=== PATIENT | female | born 1970 | race Caucasian/White ===

== ENCOUNTER 2024-09-11 14:40 | Outpatient (CLI) | payer BC, SELFPAY | END 2024-09-11 14:41 | disposition home or self-care (01) | LOC: AMB 09-12 09:27 | PROVIDERS: PCP Family Medicine; Visit Provider Student in an Organized Health Care Education/Training Program | DX: R41.82 Altered mental status, unspecified (principal); R47.01 Aphasia; R29.810 Facial weakness | CPT/HCPCS: A0425; A0429 ==

== ENCOUNTER 2024-09-11 15:07 | Emergency (ER) | payer BC, SELFPAY ==
[2024-09-11] VITALS (30 sets, daily range): BP systolic 151–167; BP diastolic 92–111; PULSE 88–108; RESP 16–22; TEMP 36.5; O2SAT 95–100; BMI 32.8
--- NOTE | 2024-09-11 15:10 | CRLHL7_ITS ---
For Patients: As a result of the Cures Act, medical imaging exams and procedure reports are released immediately into your electronic medical record. You may view this report before your referring provider. If you have questions, please contact your health care provider. INDICATION: 2 HOURS AGO DROOLING, GENERAL CLUMSINESS, RT SIDED WEAKNESS COMPARISON: None TECHNIQUE: CT of the head without contrast. FINDINGS: Brain Parenchyma: No acute infarct, acute intracranial hemorrhage, mass effect, or midline shift. Ventricles: No hydrocephalus. Extra-axial Spaces: No abnormal fluid collection. Paranasal sinuses: No significant mucosal thickening. Orbits: Unremarkable Mastoid Sinuses: Unremarkable Cranium: No acute fracture Soft tissues: Unremarkable IMPRESSION: No CT evidence of an acute intracranial process. Please note that all CT scans at this facility use dose modulation, iterative reconstruction, and/or weight-based dosing when appropriate to reduce radiation dose to as low as reasonably achievable. Dictated by Noam Dewey MD @ 09/11/2024 3:21:11 PM (Electronically Signed)
--- OUTSIDE RECORDS SUMMARY | 2024-09-11 15:10 | XMS_ITS | Clinical Summary ---
Author Organization [facility] Address [address] [place] [address] Care Team Providers Care Poleyard Supervisor Name Role Phone Elsewhere, Pcp Primary Care Provider Unavailabl e Source Comments Patient records contain information from all sites at [facility]. For routine questions regarding patient records, call [phone] during business hours, M-F 8:00 AM - 5:00 PM Central Time. Record requests for emergency care only can be directed to [phone] at any time.[facility] Allergies Active Allergy Reactions Criticality Noted Date Comments Amoxicillin Edema (Reselect Reaction) 2 Medications * This document contains information received from the source organization and may not represent a complete record from that organization. albuterol 90 mcg/actuation inhaler Inhale every 6 (six) hours as needed for wheezing. Active ascorbic acid, vitamin C, (Vitamin C) 1,000 mg tablet Take 1,000 mg by mouth daily. Active zinc acetate 50 mg (zinc) capsule Take by mouth daily. Active phentermine (ADIPEX-P) 37.5 mg tablet Take 37.5 mg by mouth daily. 07/19/2023 Active UNABLE TO FIND daily. Amberen 08/18/2023 Active atorvastatin (LIPITOR) 80 mg tablet Take 80 mg by mouth daily. 05/02/2023 Active dynjqkwl-zel-dn on-FA-vit K-lut 8 mg iron-400 mcg-50 mcg tablet Take by mouth daily. Active topiramate (TOPAMAX) 25 mg tablet Take 25 mg by mouth daily. 07/19/2023 Active sucralfate (CARAFATE) 1 gram tablet Take by mouth. 07/19/2023 Active pantoprazole (PROTONIX) 40 mg EC tablet Take 40 mg by mouth daily. 08/18/2023 Active cholecalciferol (Vitamin D3) 50 mcg (2,000 Unit) capsule Take 50 mcg by mouth daily. 08/18/2023 Active UNABLE TO FIND daily. Med Name: Calcium 1200 + Vitamin D 20mcg Active Active Problems No known active problems Social History Tobacco Use Types Packs/Day Years Used Date Smoking Tobacco: Former Cigarettes Smokeless Tobacco: Never Tobacco Cessation:Counseling Given: Not Answered Alcohol Use Standard Drinks/Week Comments Yes 0 (1 standard drink = 0.6 oz pur e alcohol) a couple drinks per day Dental Answer Date Recorded Dental: Regular Dentist Unknown 03/15/20 21 Comments Unknown Sex and Gender Information Value Date Recorded Sex Assigned at Female 06/07/2021 8:18 AM DOCKWORKER Legal Sex Female 7:04 AM DOCKWORKER Gender Identity Female 06/07/2021 8:18 AM DOCKWORKER Sexual Orientation Straight 06/07/2021 8: 18 AM DOCKWORKER Last Filed Vital Signs Vital Sign Reading Time Taken Comments Blood Pressure 128/69 08/30/2023 11:42 AM CDT Pulse 76 08/30/2023 11:42 AM CDT Temperature 36.5 C (97.7 F) 08/30/2023 11:25 AM CDT Respiratory Rate 16 08/30/2023 11:4 2 AM CDT Oxygen Saturation 98% 08/30/2023 11: 42 AM CDT Inhaled Oxygen Concentration - - Weight 93.4 kg (205 lb 12.8 oz) 08/30/2023 9:30 AM CDT Height 160 cm (5' 3) 08/30/2023 9:30 AM CDT Body Mass Index 36.46 08/30/2023 9:30 AM CDT Plan of Treatment Health Maintenance Due Date Last Done Comments CT Colonography 1972 Cervical/Vaginal Cancer Screening 1972 Cologuard 1972 FIT 1972 Fasting Glucose for Diabetes Screening 1972 HIV Screening 1972 Hepatitis C Screening 1972 Lipid (Cholesterol) Screening 1972 Pneumococcal vaccine (50+ years) (1 of 1 - PCV) 2022 Zoster Vaccines (1 of 2) 2022 Mammogram 02/21/2023 02/21/2022 Hepatitis B Vaccines (2 of 2 - CpG (Heplisav) 2-dose series) 09/14/2023 08/17/2023 COVID-19 Vaccine (4 - 2023-2 5 season) 2023 02/03/2021, 07/27/2020, 07/06/2020 Influenza Vaccine (#1) 2024 Depression Screening (Annual PHQ-2) 04/09/2024 DTaP,Tdap,and Td Vaccines (2 - Td or Tdap) 12/31/2031 12/30/2021 Colonoscopy 03/07/2032 03/07/2022 Colorectal Cancer Screening 03/07/2032 IPV Vaccines Aged Out No longer eligi ble based on patient's age to complete this topic Medical Devices Implanted Type Area [employer]ating [employer] Operator Device Identifier Shelf Expiration Date Model / Serial / Lot Hardware E.G. Pins/Screws/Ro ds Hardware e.g. pins/screws/ rods Right: Leg Procedures Procedure Name Priority Date/Time Associated Diagnosis Comments COLONOSCOPY 03/07/2022 10:10 AM DOCKWORKER BI BREAST SCREENING BILATERAL WITH TOMOSYNTHESIS RAD - Routine (most inpatients and all outpatients) 02/21/2022 2:32 PM DOCKWORKER Routine Screening Breast Exam from Last 3 Months or Most Recently Relevant to Health Maintenance Results * COLONOSCOPY (03/07/2022 10:10 AM DOCKWORKER) Narrative Procedure Note Vanessa Peña M.D. - 03/07/2022 10:[address] [facility] GI Patient Name: Emely Garg Procedure Date: 03/07/2022 10:10 AM Date of : 1970 Age: 51 Gender: Female Procedure: Colonoscopy Providers: Vanessa Peña MD, [facility] Generic gi case scheduling Provider (Ordering Provider) Referring Provider: [facility] Generic gi case scheduling Provider Pre-op Diagnoses: Screening in patient at increased risk:Colorectal cancer in father 60 or older Post-op Diagnoses: - One 1 mm polyp in the sigmoid colon, removed with a jumbo cold forceps. Resected and retrieved. Recommendation: - Await pathology results. - Anticipate follow up colonoscopy in 5-10 years based on polyp pathology. Follow up recommendations for patients with polypsidentified during colonoscopy are impacted by several factors including polyp characteristics (size, number and histology), adequacy of colonic preparation and pertinent family history. For [facility] providers, detailed recommendations are available as an AskMayoExpert CareProcess Model: <<[email or web address]>. The above is an interim recommendation assuming adenomatous pathology, referring provider should refer to [facility] to finalize repeat recommendations. Findings: The perianal and digital rectal examinations were normal. A 1 mm polyp was found in the sigmoid colon. The polyp wassemi-sessile. The polyp was removed with a jumbo cold forceps. Resection andretrieval were complete. No additional abnormalities were found on retroflexion. Of note, the patient had a chronic and significant cough that severely limited insufflation and visualization. Small polyps could have beenmissed. Medicines: Propofol per Anesthesia Estimated Blood Loss: Estimated blood loss was minimal. Complications: No immediate complications. Estimated blood loss: Minimal. Procedure Details: The patient was seen, evaluated, and history reviewed. Airway and heart and lung exams were performed and were satisfactory for plannedsedation care. The risks, benefits and alternatives for the procedure and sedation were discussed andinformed consent was obtained. A procedural pause was conducted in the presence of assisting personnelto verify the correct patient identity and procedureto be performed. Throughout the procedure, the patient's blood pressure, pulse, and oxygen saturations were monitored continuously. The Colonoscope was introduced under directvision through the anus and advanced to the cecum, identified by appendiceal orifice and ileocecal valve. The colonoscopy was performed with ease.The patient tolerated the procedure. The quality ofthe bowel preparation was evaluated using the BBPS ([place] Bowel Preparation Scale) with scores of: Right Colon = 3, Transverse Colon = 3 and LeftColon = 3 (entire mucosa seen well with no residual staining, small fragments of stool or opaque liquid). The total BBPS score equals 9. Scope insertion time was 5 minutes. Scope withdrawaltime was 13 minutes. Sedation: Anesthesia was administered by an anesthesia professional. Thefollowing parameters were monitored: oxygen saturation, heart rate, blood pressure, respiratory rate, EKG, adequacy of pulmonary ventilation,and response to care. Vanessa Peña MD 03/07/2022 10:22:34 AM Number of Addenda: 0 Note Initiated On: 03/07/2022 10:10 AM ADDENDUM: Pathology reviewed. Based on the result, and considering her familyhistory (out from primary relatives, >60 years of age), could considerrepeat colonoscopy for screening in 7-10 years. FINAL DIAGNOSIS Colon, sigmoid polyp biopsy: Hyperplastic polyp. [facility] Generic Gi Case Schedul ing Provider GI PROCEDURE ORDERABLES Edited Result - Final * (ABNORMAL) BI Breast Screening Bilateral with Tomosynthesis (02/21/2022 2:32 PM DOCKWORKER) Anatomical Region Laterality Modality Breast, Breast Imaging RST L OS, Breast Imaging ARZ LOS, Breast Imaging FLA LOS Bilateral Mammography 02/21/2022 2:51 PM DOCKWORKER Impressions 02/21/2022 2:53 PM DOCKWORKER Incomplete. Need additional imaging evaluation. RECOMMENDATION: Additional Imaging to include diagnostic spot CC mammograms and tomograms, and possible ultrasound to follow if deemed necessary ASSESSMENT: BI-RADS: 0 - Incomplete: Needs Additional Imaging Evaluation. Narrative 02/21/2022 2:53 PM DOCKWORKER EXAM: BI BREAST SCREENING BILATERAL WITH TOMOSYNTHESIS Current study was evaluated with a Computer Aided Detection (CAD) system. INDICATION: Screening mammogram. COMPARISON: Prior exam(s) were available and reviewed for comparison. DENSITY: b. There are scattered areas of fibroglandular density. FINDINGS: Left breast: No mammographic or tomographic evidence for malignancy. Right breast: Questionable focal asymmetry seen only in the right breast CC projection, best observed on frame 61/92, again the finding is not identified on the right MLO projection or tomograms. Procedure Note Abbe Cueva M.D. - 02/21/2022 EXAM: BI BREAST SCREENING BILATERAL WITH TOMOSYNTHESIS Current study was evaluated with a Computer Aided Detection (CAD) system. INDICATION: Screening mammogram. COMPARISON: Prior exam(s) were available and reviewed for comparison. DENSITY: b. There are scattered areas of fibroglandular density. FINDINGS: Left breast: No mammographic or tomographic evidence formalignancy. Right breast: Questionable focal asymmetry seen only in the right breastCC projection, best observed on frame 61/92, again the finding is not identified on the rightMLO projection or tomograms. IMPRESSION: Incomplete. Need additional imaging evaluation. RECOMMENDATION: Additional Imaging to include diagnostic spot CCmammograms and tomograms, and possible ultrasound to follow if deemed necessary ASSESSMENT: BI-RADS: 0 - Incomplete: Needs Additional ImagingEvaluation. Sonal Henley M.D. IMG BI PROCEDURES Final Result from Last 3 Months or Most Recently Relevant to Health Maintenance Insurance [facility] Advance Directives For more information, please contact: [phone] * Full Code (Latest Code Status on File) Date Activated Date Inactivated Comments 08/30/2023 9:03 AM 08/31/2023 6:13 AM Question Answer Comments Full Code: Not Discussed Due to: Patient not available * Full Code Date Activated Date Inactivated Comments 03/07/2022 10:37 AM 03/07/2022 12:40 PM Question Answer Comments Full Code: Not Discussed Due to: Patient not available * Full Code Date Activated Date Inactivated Comments 03/07/2022 8:46 AM 03/07/2022 10:37 AM Question Answer Comments Full Code: Not Discussed Due to: Patient not available Care Teams Poleyard Supervisor Relationship Specialty Start Date End Date Elsewhere, Pcp PCP - General Internal Medicine 03/07/22
--- NOTE | 2024-09-11 15:16 | CRLHL7_ITS ---
For Patients: As a result of the Century Cures Act, medical imaging exams and procedure reports are released immediately into your electronic medical record. You may view this report before your referring provider. If you have questions, please contact your health care provider. CLINICAL HISTORY: Right-sided facial droop and clumsiness. TECHNIQUE: Standard helical CT image acquisition through the head following the administration of intravenous contrast was performed. 3D and MIP reconstructions were performed at a separate workstation and permanently archived. COMPARISON: None available. FINDINGS: No intracranial proximal large vessel occlusion or flow-limiting luminal stenosis. No evidence of cerebral aneurysm. No findings to suggest an arterial-venous shunting lesion. The major dural venous sinuses and deep venous system are patent. IMPRESSION: No intracranial proximal large vessel occlusion, flow-limiting luminal stenosis, or cerebral aneurysm. Please note that all CT scans at this facility use dose modulation, iterative reconstruction, and/or weight-based dosing when appropriate to reduce radiation dose to as low as reasonably achievable. Dictated by Jarad Valverde MD @ 09/12/2024 9:10:59 AM (Electronically Signed)
--- NOTE | 2024-09-11 15:16 | CRLHL7_ITS ---
For Patients: As a result of the Century Cures Act, medical imaging exams and procedure reports are released immediately into your electronic medical record. You may view this report before your referring provider. If you have questions, please contact your health care provider. CLINICAL HISTORY: Right-sided weakness and clumsiness. TECHNIQUE: Standard helical CT image acquisition through the neck was performed after intravenous contrast bolus enhancement. 3D and MIP reconstructions were performed at a separate workstation and permanently archived. COMPARISON: None available. FINDINGS: The origins of the great vessels from the aortic arch are patent. The common carotid arteries are patent. No significant luminal stenoses of the proximal ICAs by NASCET criteria. The more distal cervical segments of the ICAs are patent. The origins and cervical segments of the vertebral arteries are patent. IMPRESSION: Patent cervical arterial vasculature without hemodynamically significant luminal stenosis. Please note that all CT scans at this facility use dose modulation, iterative reconstruction, and/or weight-based dosing when appropriate to reduce radiation dose to as low as reasonably achievable. Dictated by Jarad Valverde MD @ 09/12/2024 9:07:53 AM (Electronically Signed)
--- NOTE | 2024-09-11 15:17 | ED.GENADULT ---
HPI - General Adult General Chief complaint: Neuro Symptoms/Altered Deficit Stated complaint: stroke Time Seen by Provider: 09/11/24 15:10 History of Present Illness HPI narrative: 54-year-old female brought to the ER today by EMS from her job at [employer] with concern for acute stroke. History from paramedics is that symptoms began at roughly 1:20 p.m., about 90 minutes prior to arrival. She works at [employer] and started to feel something was wrong with her face so she went to talk to her sister and 120 and her sister noted that she seemed to have a right facial droop and a little bit of drooling from the right side of her mouth. History of the patient is more difficult to get because of her dysarthria and difficulty speaking. 1 she is able to cooperate with exam and does have right facial droop, slurred speech, right arm and right leg weakness. The no headache. No chest pain. No history of heart or vascular disease. No history of stroke. She is not anticoagulated. She is on a medicine for cholesterol and a medicine for weight loss. History from the patient's sister is obtained. Sister was with her at work today. They both work in the same facility. The patient's sister says that the patient come to visit her at her desk at about 115 or 130 today. Definitely just before the sisters 130 meaning. While they were talking she was initially definitely normal. And then while they were talking the patient had an episode where she seemed to climbs only moved her right arm and Dr. Velarde over. The patient bent over to clean up her mass and then when she stood up she seemed to be having a little bit of a drool droopiness on her right corner of her mouth. Symptoms were subtle at 1st and so they did not quite recognize what was going on. The patient went back and continued her job. Later her coworkers then called the ambulance for her because they noticed progressive weakness and trouble moving her right arm and right leg. She apparently had an episode where she almost fell over because right leg weakness. Sister and note that she has been on a medication prescribed by her PCP for about 6-12 months to for weight loss. They think it might start with a P (possibly phentermine). She has lost about 50 lb. Related Data Home Medications ?Medication ?Instructions ?Recorded ?Confirmed atorvastatin 80 mg tablet 80 mg PO DAILY 09/11/24 09/11/24 famotidine 40 mg tablet 40 mg PO DAILY 09/11/24 09/11/24 pantoprazole 40 mg tablet,delayed 40 mg PO BID 09/11/24 09/11/24 release phentermine 37.5 mg tablet 37.5 mg PO DAILY 09/11/24 09/11/24 sucralfate 1 gram tablet 1 g PO QID 09/11/24 09/11/24 topiramate 25 mg tablet 25 mg PO DAILY 09/11/24 09/11/24 Allergies Allergy/AdvReac Type Severity Reaction Status Date / Time amoxicillin Allergy Mild Rash Verified 09/11/24 15:20 Exam Narrative: Exam Narrative: Constitutional: Appears well-developed and well-nourished. Alert. Conversant. Non toxic. HENT: Head: Atraumatic. Nose: Nose normal. Mouth/Throat: Oral mucosa is clear and moist. no trismus. Pharynx normal. Tonsils symmetric. No tonsillar enlargement, erythema, or exudate. Eyes: Conjunctivae normal. EOM normal. Pupils equal, round, and reactive to light. No scleral icterus. Neck: Normal range of motion. Neck supple. No tracheal deviation present. Cardiovascular: Normal rate, regular rhythm. No gallop. No friction rub. No murmur heard. Symmetric radial and PT artery pulses Pulmonary/Chest: Effort normal. No stridor. No respiratory distress. No wheezes. No rales. No rhonchi . No tenderness. Abdominal: Soft. No distension. No mass. No tenderness. No rebound. No guarding. Musculoskeletal: RUE: Normal range of motion. No tenderness. No deformity LUE: Normal range of motion. No tenderness. No deformity RLE: Normal range of motion. No edema. No tenderness. No deformity LLE: Normal range of motion. No edema. No tenderness. No deformity Lymph: No cervical adenopathy. Neurological: Mental status normal. Attention normal. Alert and oriented x3. GCS 15. Memory normal. Speech slurred and difficult to understand. Cognition normal. Cranial Nerves intact II-XII except I did not formally test gag or visual acuity. EOMI. Palate elevates symmetrically and tongue protrudes in the midline. Strength: Strength is weak on the right upper extremity and right lower extremity. Coordinate Measuring Machine Operator strength is 4+/5 in biceps/triceps are 4+/5. She is able to hold her arm up against gravity but it drifts down to the bed and she is barely able to hold from touching the patches for a full 5 seconds. Similarly she is weak on the right leg. She is able to lift her leg against gravity and hold it but does drift downward about retirement to the bed folic count 5. She also has some ataxia with in accurate finger to nose on the right hand and interactive heel smith using her right decreased sensation to light touch in right upper extremity. Normal on the left. Decreased sensation light touch in the right lower extremity. Normal on the left. Gait not assessed NIH SS= 8 Skin: Skin is warm and dry. No rash noted. No pallor. Normal capillary refill. Psychiatric: Normal mood. Worried and mildly tearful. Const: Vital Signs, click to edit/add: Vital Signs - 24 hr 09/11/24 15:15 09/11/24 15:22 09/11/24 15:29 Temperature 97.7 F Pulse Rate Pulse Rate [Left P ulse Oximeter] 108 H Respiratory Rate 18 Blood Pressure 155/97 H Blood Pressure [Le ft Upper Arm] 167/98 H Pulse Oximetry 100 95 Oxygen Delivery Me thod Room Air Room Air 09/11/24 15:29 09/11/24 15:46 09/11/24 15:47 Temperature Pulse Rate 98 99 Pulse Rate [Left P ulse Oximeter] Respiratory Rate 18 Blood Pressure 162/92 H Blood Pressure [Le ft Upper Arm] Pulse Oximetry 99 100 100 Oxygen Delivery Ne thod 09/11/24 15:53 09/11/24 15:54 09/11/24 16:00 Temperature Pulse Rate 97 95 95 Pulse Rate [Left P ulse Oximeter] Respiratory Rate 20 Blood Pressure 160/101 H Blood Pressure [Le ft Upper Arm] Pulse Oximetry 100 100 99 Oxygen Delivery Ne thod 09/11/24 16:02 09/11/24 16:03 09/11/24 16:15 Temperature Pulse Rate 92 91 91 Pulse Rate [Left P ulse Oximeter] Respiratory Rate 16 Blood Pressure 163/97 H Blood Pressure [Le ft Upper Arm] Pulse Oximetry 100 99 100 Oxygen Delivery Me thod 09/11/24 16:17 09/11/24 16:30 09/11/24 16:32 Temperature Pulse Rate 95 90 90 Pulse Rate [Left P ulse Oximeter] Respiratory Rate 20 20 Blood Pressure 159/98 H 162/109 H Blood Pressure [Le ft Upper Arm] Pulse Oximetry 99 99 99 Oxygen Delivery Me thod 09/11/24 16:33 09/11/24 16:45 09/11/24 16:47 Temperature Pulse Rate 88 90 93 Pulse Rate [Left P ulse Oximeter] Respiratory Rate 18 Blood Pressure 155/95 H Blood Pressure [Le ft Upper Arm] Pulse Oximetry 100 99 100 Oxygen Delivery Me thod 09/11/24 17:00 09/11/24 17:01 09/11/24 17:15 Temperature Pulse Rate 90 88 91 Pulse Rate [Left P ulse Oximeter] Respiratory Rate 16 Blood Pressure 167/94 H Blood Pressure [Le ft Upper Arm] Pulse Oximetry 99 100 100 Oxygen Delivery Me thod 09/11/24 17:17 09/11/24 17:32 09/11/24 17:45 Temperature Pulse Rate 96 88 Pulse Rate [Left P ulse Oximeter] Respiratory Rate 16 17 Blood Pressure 151/111 H 158/98 H Blood Pressure [Le ft Upper Arm] Pulse Oximetry 100 98 Oxygen Delivery Me thod 09/11/24 17:47 09/11/24 18:00 09/11/24 18:01 Temperature Pulse Rate 97 95 95 Pulse Rate [Left P ulse Oximeter] Respiratory Rate 18 22 Blood Pressure 151/105 H 157/95 H Blood Pressure [Le ft Upper Arm] Pulse Oximetry 100 98 98 Oxygen Delivery Me thod 09/11/24 18:15 09/11/24 18:16 09/11/24 18:17 Temperature Pulse Rate 96 97 97 Pulse Rate [Left P ulse Oximeter] Respiratory Rate 16 16 Blood Pressure 157/97 H Blood Pressure [Le ft Upper Arm] Pulse Oximetry 98 97 98 Oxygen Delivery Ne thod 09/11/24 18:32 Temperature Pulse Rate 97 Pulse Rate [Left P ulse Oximeter] Respiratory Rate 16 Blood Pressure 157/101 H Blood Pressure [Le ft Upper Arm] Pulse Oximetry 99 Oxygen Delivery Ne thod Course Course ED Course: Patient arrived by EMS. I met the patient in the hallway next to the CT scanner and receive report from \paramedics. Patient was taken immediately for noncontrast head CT. I reviewed the images it they came up the scanner and they look negative for bleed by my read. I accompanied the patient back to ER room 8 performed my own history his history and physical. Code stroke was initiated and phone consult for stroke neurologist was placed. Initial aNIHSS= 8. Discussed with stroke neurology, Dr. Heath. Based on the patient's presenting symptoms and NIH Stroke Scale, given the time frame, she and I agree that the patient would be a candidate for thrombolytics. Dr. Heath is not able to immediately law gone for the tele stroke consult. She recommends that we administer that tonight to place now and Dr. Heath will log on as soon she is able. However she does not want us to delay thrombolytic for the tele stroke evaluation. Discussed this plan with the nurses. They are working on getting weight so I can order that next place. Discussed with pharmacy to expedite administration. As I was discussing the patient's presenting stroke symptoms and indications for thrombolytic with the patient's sister and arrived, the stroke neurologist came on and did a brief tele stroke evaluation. Stroke Neurology again recommended thrombolytics. We had the nurses except the dose and again confirm the correct dose with pharmacy. Patient received tenecteplase at approximately 1:50 p.m.. Recheck-blood pressure remained similar about 160/90. No spikes of dangerous hypertension. No lows. Recheck-discussed again with Stroke Neurology. Also discussed with accepting application processor from [facility], Dr. Bowers, who accepts the patient for transfer. Unfortunately we have to wait a little bit for review nurse to nurse because a bed available Recheck-patient noting improved symptoms. Her family notes that her speech is almost completely clear. Her right facial droop is improving. She is now moving her right arm normally and even using it to the rub the right side of her face. She has had near resolution of her stroke symptoms. Recheck-now has a little bit of blood in her mouth. Family reports that she has had poor teeth and has had trouble with her gums for some time. I recheck the patient. She has minimal oozing from the gums of her upper jaw but no significant bleeding. She has a few drops of blood when she wipes who prominent mouth gauze. No significant bleeding. No signs of tongue swelling. No tongue laceration. Recheck-patient have recurrence of her stroke symptoms. Now similar again to what she presented with. I recheck the patient. She again did have recurrent stroke symptoms similar to presentation. Center back for repeat head CT to make sure there was no bleed from thrombolytic. Discussed again with Stroke Neurology. They were able to review the CT with me and we agree that there is no acute intracranial hemorrhage. Stroke Neurology suspect that this is probably just waxing and waning symptoms. No further intervention required at this time. Around this time patient was accepted to the ICU at [facility] and nurses were able to do the nurse to nurse report and call for transport Vital Signs Vital signs: Initial Vital Signs Temperature 97.7 F 09/11/24 15:15 Temperature Source Temporal Artery Scan 09/11/24 15:15 Pulse Rate 108 H 09/11/24 15:15 Pulse Rhythm Regular 09/11/24 15:15 Respiratory Rate 18 09/11/24 15:15 Blood Pressure 167/98 H 09/11/24 15:15 Blood Pressure Mean 121 H 09/11/24 15:15 Blood Pressure Position Sitting 09/11/24 15:15 Pulse Oximetry 100 09/11/24 15:15 Oxygen Delivery Method Room Air 09/11/24 15:15 Vital Signs Temperature 97.7 F 09/11/24 15:15 Pulse Rate 108 H 09/11/24 15:15 Respiratory Rate 18 09/11/24 15:15 Blood Pressure 167/98 H 09/11/24 15:15 Pulse Oximetry 100 09/11/24 15:15 Oxygen Delivery Method Room Air 09/11/24 15:15 Temperature 97.7 F 09/11/24 15:15 Pulse Rate 97 09/11/24 18:32 Respiratory Rate 16 09/11/24 18:32 Blood Pressure 157/101 H 09/11/24 18:32 Pulse Oximetry 99 09/11/24 18:32 Oxygen Delivery Method Room Air 09/11/24 15:29 Medications Administered Medications: Discontinued Medications Generic Name Dose Route Start Last Admin Trade Name Freq PRN Reason Stop Dose Admin Tenecteplase 20 mg 09/11/24 15:29 09/11/24 15:50 Tenecteplase 5 Mg/Ml Inj 0.25 mg/kg (20 mg) 09/11/24 15:30 20 mg IVP Administration ONCE ONE Medical Decision Making MDM Narrative Medical decision making narrative: 54-year-old female presenting to the ER today by EMS with stroke symptoms that began about 1:20 p.m. this afternoon. Symptoms ongoing less than 3 hours at the time of presentation. Symptoms concerning for stroke and NIH stroke scale was abnormal at 8. Stat noncontrast head CT was fortunately negative for intracranial hemorrhage. In discussion with the patient and her family we did not identify any contraindications to thrombolytics. No history of brain tumors or brain surgery. No recent surgeries. No recent GI bleeding. She is not on any other anti-platelet or anticoagulant agents. Laboratory workup showed normal blood sugar. Platelet count was normal. In consultation with stroke neurologist and after obtaining verbal consent from the patient and her family including discussion of the risks of stroke, risks of thrombolytic including bleeding and potential life-threatening hemorrhaging, weight based his neck place was administered at approximately 3:50 p.m.. Patient subsequently had improvement in her stroke symptoms but then did have her recurrence of stroke symptoms. Repeat head CT is negative for bleed Laboratory workup did not show any other explanation for stroke symptoms. Blood sugar normal. Electrolytes and kidney function normal. CBC normal. Coags normal. She will be transferred by EMS to the neuro ICU at [facility]. Lab Data Labs: Lab Results 09/11/24 Range/Units 15:17 WBC 8.45 (4.50-11.00) K/uL RBC 4.33 (4.00-5.20) m/uL Hgb 13.2 (12.0-16.0) gm/dL Hct 40.1 (33.0-51.0) % MCV 93 (80-100) fL MCH 31 (26-34) pg MCHC 33 (32-36) gm/dL RDW Coeff of Yasmin 12.7 (11.5-15.5) % Plt Count 272 (140-440) K/uL Neut % (Auto) 70.7 (42.0-72.0) % Lymph % (Auto) 17.4 L (20-44) % Pine % (Auto) 9.1 (0.0-11.0) % Eos % (Auto) 1.1 (0.0-7.0) % Baso % (Auto) 0.5 (0.0-3.0) % Neut # (Auto) 5.98 (1.7-7.0) K/uL Lymph # (Auto) 1.50 (0.90-2.90) K/uL Pine # (Auto) 0.80 (0.00-0.90) K/UL Eos # (Auto) 0.09 (0.00-0.50) K/uL Baso # (Auto) 0.04 (0.00-0.30) K/uL Abs Immat Gran (auto) 0.10 (0.00-0.30) K/uL Imm/Tot Granulo (auto) 1.2 % INR 0.88 L (0.91-1.10) APTT 28 (23-33) Seconds Sodium 141 (135-149) mmol/L Potassium 4.0 (3.6-5.1) mmol/L Chloride 109 (96-114) mmol/L Carbon Dioxide 23 (20-32) mmol/L Anion Gap 9 (7-15) mEq/L BUN 13 (7-30) mg/dL Creatinine 0.9 (0.5-1.5) mg/dL Estimated Creat Clear 60.49 Estimated GFR 77 ml/min Glucose 118 H (60-115) mg/dL Lactate 1.4 (0.5-1.9) mmol/L Calcium 9.6 (8.4-10.6) mg/dL Troponin I < 0.01 (0.01-0.04) ng/mL Imaging Data CTA head and neck: Attestation: I have reviewed the pertinent imaging results. Radiologist's impression: Preliminary Report: CTA Head: No large vessel occlusion, significant arterial stenosis, or intracranial aneurysm. CTA Neck: No arterial dissection or significant arterial stenosis. ECG Data Attestation: I personally reviewed and interpreted this ECG as follows: Interpretation: Normal sinus rhythm Rate: 97 ME: 140 QRS axis: Normal axis ST segment/T wave: No ST segment elevation or depression QTc: 447 Critical Care Time Critical Care Time Critical Care Time: Yes Attestation: The patient required my highest level preparedness to intervene emergently and I personally spent this critical care time directly and personally managing the patient. This critical care time included: Obtaining a history; Examining the patient; Pulse oximetry; Ordering and reviewing of studies; Arranging urgent treatment with development of a management plan; Evaluation of patients response to treatment; Frequent reassessment discussions with other providers. This critical care time was performed to assess and manage the high probability of imminent life-threatening deterioration that could result in multiorgan failure. It was exclusive of separate billable procedures and treating other patients and teaching time. Total Critical Care Time in Minutes: 45 Discharge Plan Discharge Clinical Impression: Cerebrovascular accident Patient Disposition: Verna Wheat Prescriptions: No Action atorvastatin 80 mg tablet 80 mg PO DAILY sucralfate 1 gram tablet 1 g PO QID famotidine 40 mg tablet 40 mg PO DAILY topiramate 25 mg tablet 25 mg PO DAILY phentermine 37.5 mg tablet 37.5 mg PO DAILY pantoprazole 40 mg tablet,delayed release (DR/EC) 40 mg PO BID Stand Alone Forms: [employer] Info Instructions
[2024-09-11 15:23] LABS: Lactate* 1.4 mmol/L (0.5-1.9)
[2024-09-11 15:31] LABS: Basophils Absolute Auto 0.04 K/uL (0.00-0.30); Basophils Percent Auto 0.5 % (0.0-3.0); Eosinophils Absolute Auto 0.09 K/uL (0.00-0.50); Eosinophils Percent Auto 1.1 % (0.0-7.0); Hematocrit 40.1 % (33.0-51.0); Hemoglobin* 13.2 gm/dL (12.0-16.0); Immature Granulocytes Pct Auto 1.2 %; Lymphocytes Percent Auto 17.4 % (20-44); Mean Corpuscular HGB Conc 33 gm/dL (32-36); Mean Corpuscular Hemoglobin 31 pg (26-34); Mean Corpuscular Volume 93 fL (80-100); Monocytes Percent Auto 9.1 % (0.0-11.0); Neutrophils Absolute Auto 5.98 K/uL (1.7-7.0); Neutrophils Percent Auto 70.7 % (42.0-72.0); Platelet Count* 272 K/uL (140-440); RDW Coefficient of Variation % 12.7 % (11.5-15.5); Red Blood Count 4.33 m/uL (4.00-5.20); White Blood Count* 8.45 K/uL (4.50-11.00)
[2024-09-11 15:38] LABS: Slide Review Reflex No
[2024-09-11 15:42] LABS: Chloride* 109 mmol/L (96-114); Sodium* 141 mmol/L (135-149)
[2024-09-11 15:43] LABS: INR 0.88 (0.91-1.10); Prothrombin Time 12.7 Seconds
[2024-09-11 15:44] LABS: Partial Thromboplastin Time* 28 Seconds (23-33)
[2024-09-11 15:45] LABS: Blood Urea Nitrogen* 13 mg/dL (7-30); Creatinine* 0.9 mg/dL (0.5-1.5); Est. Creatinine Clearance* 60.49; Estimated Glomerular Filt Rate 77 ml/min
[2024-09-11 15:46] LABS: Anion Gap 9 mEq/L (7-15); Calcium* 9.6 mg/dL (8.4-10.6); Carbon Dioxide* 23 mmol/L (20-32); Glucose* 118 mg/dL (60-115)
[2024-09-11] MEDS: TENECTEPLASE 5 MG/ML inj 20 MG IVP (15:50)
[2024-09-11 16:03] LABS: Troponin I* < 0.01 ng/mL (0.01-0.04)
--- NOTE | 2024-09-11 17:25 | CRLHL7_ITS ---
For Patients: As a result of the Century Cures Act, medical imaging exams and procedure reports are released immediately into your electronic medical record. You may view this report before your referring provider. If you have questions, please contact your health care provider. INDICATION: Neurologic deficit, worsening, status post TNK. TECHNIQUE: Noncontrast CT of the head with multiplanar reconstruction utilizing bone and soft tissue algorithms. COMPARISON: CT head from earlier the same day 09/11/2024. FINDINGS: No acute intracranial hemorrhage. The carvajal-white matter interface is preserved. There is residual intravascular contrast from recent prior CTA studies. The ventricles are normal in size. No abnormal extra-axial fluid collection is identified. Normal calvarium and skull base. Unremarkable orbits. The paranasal sinuses and mastoid air cells are clear. IMPRESSION: No acute intracranial abnormality. Please note that all CT scans at this facility use dose modulation, iterative reconstruction, and/or weight-based dosing when appropriate to reduce radiation dose to as low as reasonably achievable. Dictated by Vik Serrato MD @ 09/11/2024 6:14:14 PM (Electronically Signed)
--- NOTE | 2024-09-11 18:58 | ED.NURSE ---
Patient left with [facility]. Update called to Tracey MALCOLM.
== END 2024-09-11 19:05 | disposition short-term general hospital (02) ==
PROVIDERS: Emergency Provider Emergency Medicine; PCP Family Medicine
DX: I63.9 Cerebral infarction, unspecified (principal); R47.1 Dysarthria and anarthria; R29.810 Facial weakness; G81.91 Hemiplegia, unspecified affecting right dominant side; Z79.899 Other long term (current) drug therapy
CPT/HCPCS: 36415; 70450; 70496; 70498; 80048; 82565; 83605; 84484; 85025; 85610; 85730; 93005; 94761; 99285; 99291; G0508; J3101; Q9967

== ENCOUNTER 2024-09-11 18:22 | Outpatient (CLI) | payer BC, SELFPAY | END 2024-09-11 18:23 | disposition home or self-care (01) | LOC: AMB 09-12 10:12 | PROVIDERS: PCP Family Medicine; Visit Provider Family Medicine | DX: I63.9 Cerebral infarction, unspecified (principal) | CPT/HCPCS: A0425; A0427 ==